=== PATIENT | female | born 1965 | race Caucasian/White ===

== ENCOUNTER 2017-07-19 07:45 | Outpatient (CLI) | payer BC | END 2017-07-19 07:46 | disposition home or self-care (01) | LOC: BICMAMMO 07:45 | PROVIDERS: ATTEND Family Medicine | DX: Z12.31 Encounter for screening mammogram for malignant neoplasm of breast (principal) | CPT/HCPCS: 77063; 77067 ==

== ENCOUNTER 2018-01-09 06:50 | Day surgery (SDC) | payer BC ==
[2018-01-08 09:19] VITALS: BMI 24.5
[2018-01-09] MEDS ORDERED: Ketorolac Tromethamine 30 MG/ML VIAL ONE (07:39)
[2018-01-09 07:52] LABS: #Basophils 0.1 thou/uL (0.0-0.2); #Eosinphils 0.2 thou/uL (0.0-0.7); #Lymphocytes 1.7 thou/uL (1.20-3.40); #Monocytes 0.5 thou/uL (0.11-0.59); #Neutrophils 3.8 thou/uL (1.40-6.50); %Basophils 0.8 % (0.0-1.0); %Lymphocytes 27.7 % (21.0-51.0); %Neutrophils 60.4 % (42.0-75.0); Hemoglobin 12.5 g/dL (12.0-16.0); Mean Corpuscular HGB CONC 33.4 g/dL (32.0-36.0); Mean Corpuscular Hemoglobin 32.7 pg (27.0-31.0); Mean Corpuscular Volume 98.1 fL (78.0-98.0); Mean Platelet Volume 6.7 fL (7.4-10.4); Platelet Count 314 thou/uL (130-400); RBC Distribution Width 11.2 % (11.5-14.5); Red Blood Cell (RBC) Count 3.81 mill/uL (4.20-5.40); White Blood Cell (WBC) Count 6.2 thou/uL (4.8-10.8)
[2018-01-09 08:13] LABS: ALT (SGPT) 8 U/L (8-55); AST (SGOT) 13 U/L (5-34); Albumin 3.9 g/dL (3.5-5.0); Alkaline Phosphatase 67 U/L (40-150); Anion Gap 13 mmol/L (10-20); BUN (Urea Nitrogen) 11 mg/dL (9.8-20.1); Bilirubin, Total 0.4 mg/dL (0.2-1.2); Calc. Creatinine Clearance 71 mL/min (70-130); Calcium 9.2 mg/dL (7.8-10.44); Carbon Dioxide 26 mmol/L (22-29); Chloride 105 mmol/L (98-107); Estimated GFR-MDRD 70; Globulin 2.9 g/dL (2.4-3.5); Glucose 100 mg/dL (70-105); Potassium 3.7 mmol/L (3.5-5.1); Protein, Total 6.8 g/dL (6.0-8.3); Sodium 140 mmol/L (136-145)
[2018-01-09] MEDS ORDERED: Bupivacaine/Epinephrine 0.25% 30 ML VIAL ONE (08:50)
[2018-01-09] MEDS ORDERED: CEFAZOLIN/Water 2 GM/20 ML SYRINGE ONE (09:05)
[2018-01-09] MEDS ORDERED: Fentanyl 100 MCG/2 ML VIAL ONE ×2 (09:10→10:42)
[2018-01-09] MEDS ORDERED: Midazolam HCl 2 mg/2 ml Vial ONE (09:10)
[2018-01-09] MEDS ORDERED: Ondansetron HCl/PF 4 MG/2 ML Vial ONE (11:45)
[2018-01-09] MEDS ORDERED: Glycopyrrolate 0.2 MG/ML 5 ML SYRINGE ONE (11:45)
[2018-01-09] MEDS ORDERED: ePHEDrine/0.9% NaCl/PF SYRINGE 50 mg/10 ml ONE (11:45)
--- NOTE | 2018-01-10 15:13 | EKG ---
Test Reason : PREOP Blood Pressure : / mmHG Vent. Rate : 054 BPM Atrial Rate : 054 BPM P-R Int : 134 ms QRS Dur : 096 ms QT Int : 412 ms P-R-T Axes : 074 045 056 degrees QTc Int : 390 ms Sinus bradycardia Otherwise normal ECG No previous ECGs available Confirmed by NUBIA ARMENTA, JEFERSON ([id number]) on 01/10/2018 3:13:24 PM Referred By: YANIRA Confirmed By:JEFERSON DELACRUZ MD
--- NOTE | 2018-01-15 11:02 | PDOC.OP ---
Operative Note - Operative Note Operative Note: PROCEDURE: Laparoscopic cholecystectomy SURGEON: Guilherme Sosa M.D. DATE OF PROCEDURE: PREOPERATIVE DIAGNOSIS: Cholelithiasis and cholecystitis POSTOPERATIVE DIAGNOSIS: Cholelithiasis and cholecystitis HISTORY: Patient with signs and symptoms of biliary colic. Laparoscopic cholecystectomy was recommended for symptomatic relief. Preoperative LFTs and bile duct caliber were normal. The patient had a preoperative CT which mentions a retroverted uterus but she has undergone total abdominal hysterectomy. Pelvic ultrasound did not show any pelvic mass, uterus or ovary. Recommendation was made to laparoscopically examine the pelvis as well to make sure that there is no solid tissue mass. FINDINGS: Distended gallbladder with omental adhesions. No pelvic mass. Uterus and ovaries surgically absent. PROCEDURE IN DETAIL: After informed consent was obtained and appropriate preoperative antibiotics were administered, the patient was taken to the operating room and placed in the supine position and general endotracheal anesthesia was administered. The stomach was decompressed with an OG tube and the abdomen was prepped and draped in standard sterile fashion. Local anesthesia was infused to the skin and subcutaneous tissues at the umbilical level. A transverse skin incision was made. The fascia was elevated and a Veress needle was placed into the abdominal cavity without difficulty. Opening pressure was less than 5 and carbon dioxide gas easily insufflated to an intra- abdominal pressure of 15, which the patient tolerated well. The Veress needle was withdrawn and a [place] port advanced under direct vision. The abdominal cavity was carefully examined. There was no evidence of Veress needle or of trocar injury. Local anesthesia was infused to the skin and subcutaneous tissues at the epigastric, right upper quadrant, and right lateral abdominal sites and trocars were placed under direct vision of the laparoscope. The fundus of the gallbladder was grasped and retracted superiorly. Omental adhesions were stripped inferiorly exposing the infundibulum. The infundibulum was grasped and retracted laterally. The serosa was stripped inferiorly at the level of the neck of the gallbladder exposing the cystic duct and artery which were traced clearly to their insertion in the gallbladder. Critical view of safety was obtained and the cystic duct and artery were clipped and divided between clips. The gallbladder was then dissected free of the gallbladder bed using hook electrocautery. Prior to complete removal of the gallbladder from the gallbladder bed, the area of the cystic duct and artery stumps was examined. The clips were in good position completely across these structures and there was no bleeding and no leakage of bile. The gallbladder was then placed into an EndoCatch bag and drawn out through the epigastric incision after removing numerous stones. The epigastric trocar was replaced and the operative site easily irrigated to clear. There was no significant bleeding or spillage of bile. The patient was then placed in Trendelenburg and the pelvis was examined. Uterus and ovaries were surgically absent and there were loops of normal appearing small bowel loops in the pelvis which were easily able to be retracted out of the pelvis and grossly normal appearing sigmoid colon. No significant adhesions or findings. The epigastric trocar was removed and the fascia closed under direct laparoscopic vision with a 0 Vicryl suture on a GraNee needle in a [id number] manner with excellent technical result. The right upper quadrant and right lateral abdominal trocars were removed and hemostasis verified. Carbon dioxide gas was allowed to desufflate through the umbilical trocar which was then removed. The skin incisions were closed with 4- 0 subcuticular Monocryl sutures and Dermabond dressings were placed. The patient was extubated and taken to the recovery room in good condition. There were no complications. ESTIMATED BLOOD LOSS: Minimal. SPECIMEN : Gallbladder and contents.
== END 2018-01-09 11:45 | disposition home or self-care (01) ==
LOC: SDC 06:50
PROVIDERS: ATTEND Surgery
PROC: 0FT44ZZ Resection of Gallbladder, Percutaneous Endoscopic Approach (ICD-10-PCS; principal; 2018-01-09)
DX: K80.10 Calculus of gallbladder with chronic cholecystitis without obstruction (principal); K82.8 Other specified diseases of gallbladder; F41.9 Anxiety disorder, unspecified; G43.909 Migraine, unspecified, not intractable, without status migrainosus; M19.90 Unspecified osteoarthritis, unspecified site; G89.29 Other chronic pain; M54.9 Dorsalgia, unspecified; Z79.899 Other long term (current) drug therapy; Z88.2 Allergy status to sulfonamides; Z98.1 Arthrodesis status
CPT/HCPCS: 36415; 80053; 85025; 88304; 93005; 93010; 96374; J0131; J1885; J2250; J2405; J3010

== ENCOUNTER 2018-01-15 08:38 | Outpatient (CLI) | payer BC ==
--- NOTE | 2018-01-15 11:55 | MRI ---
MRI LUMBAR SPINE WITH AND WITHOUT CONTRAST: HISTORY: Low back pain, M54.9. Right leg and back pain. COMPARISON: MRI from 12/30/2015. FINDINGS: The aortic contour is nonaneurysmal. No hydronephrosis. No retroperitoneal adenopathy. There are laminectomy changes at L3, L4, and L5, with posterior spinal fusion hardware. The levels are as follows: T12-L1: Circumferential disk bulge, as well as a right paracentral component. There is minimal effa cement of the ventral CSF space. No neural foraminal narrowing. L1-L2: Severe degenerative disk space height loss. There are also moderate to severe facet changes. There is a circumferential disk osteophyte complex. There is some mild effacement of the ventral C SF space, with the canal measuring approximately a centimeter. There is 1 mm of anterolisthesis. Th ere is no significant neural foraminal narrowing. L2-L3: There is a circumferential disk bulge with a right paracentral, subforaminal posterior disk p rotrusion. This causes moderate right-sided neural foraminal narrowing. The spinal canal at this le livan is narrowed to approximately 7 mm. Mild left-sided neural foraminal narrowing. Moderate facet a rthropathy. There appears to be abutment of the exiting right-sided nerve root. L3-L4: Diskectomy changes. No significant neural foraminal or spinal canal narrowing. There is a l eft facet osteophyte causing moderate neural foraminal narrowing. L4-L5: Diskectomy changes. Hypertrophic facet osteophyte on the left causes moderate left-sided carmelo ral foraminal narrowing with abutment of the exiting and traversing nerve roots. L5-S1: Severe degenerative disk space height loss. Moderate facet arthropathy. There is a left sub foraminal posterior disk osteophyte complex and a right subforaminal posterior disk osteophyte comple x. Moderate bilateral neural foraminal narrowing with abutment of the left exiting and traversing ne rve root. IMPRESSION: Degenerative changes as described above with multilevel nerve root abutment. POS: [facility]
== END 2018-01-15 08:39 | disposition home or self-care (01) ==
LOC: MRI 08:38
PROVIDERS: ATTEND Family Medicine
DX: M54.5 Low back pain (principal); M47.896 Other spondylosis, lumbar region; M47.897 Other spondylosis, lumbosacral region
CPT/HCPCS: 72158

== ENCOUNTER 2018-01-20 12:45 | Observation (INO) | payer BC ==
[2018-01-20] MEDS ORDERED: Morphine 4 MG/ML VIAL ONE (13:09)
[2018-01-20] MEDS ORDERED: Ondansetron HCl/PF 4 MG/2 ML Vial ONE (13:09)
[2018-01-20 13:15] LABS: #Basophils 0.1 thou/uL (0.0-0.2); #Eosinphils 0.4 thou/uL (0.0-0.7); #Lymphocytes 2.5 thou/uL (1.20-3.40); #Monocytes 0.5 thou/uL (0.11-0.59); %Basophils 0.9 % (0.0-1.0); %Lymphocytes 26.3 % (21.0-51.0); %Monocytes 5.3 % (0.0-10.0); %Neutrophils 63.5 % (42.0-75.0); Hemoglobin 12.9 g/dL (12.0-16.0); Mean Corpuscular HGB CONC 35.5 g/dL (32.0-36.0); Mean Corpuscular Volume 95.7 fL (78.0-98.0); Mean Platelet Volume 6.8 fL (7.4-10.4); Platelet Count 331 thou/uL (130-400); Red Blood Cell (RBC) Count 3.78 mill/uL (4.20-5.40); White Blood Cell (WBC) Count 9.5 thou/uL (4.8-10.8)
[2018-01-20 13:28] LABS: Bilirubin Negative (Negative); Blood, Urine Negative (Negative); Clarity CLEAR (Clear); Glucose, Urine (Dipstick) Negative (Negative); Leukocyte Negative (Negative); Nitrite Negative (Negative); Protein, Urine (Dipstick) Negative (Neg-Trace); Urobilinogen 0.2 mg/dL (0.2-1.0)
[2018-01-20 13:37] LABS: ALT (SGPT) 7 U/L (8-55); AST (SGOT) 13 U/L (5-34); Albumin 4.4 g/dL (3.5-5.0); Alkaline Phosphatase 77 U/L (40-150); Anion Gap 13 mmol/L (10-20); BUN (Urea Nitrogen) 11 mg/dL (9.8-20.1); Bilirubin, Total 0.4 mg/dL (0.2-1.2); Calc. Creatinine Clearance 0 mL/min (70-130); Calcium 9.6 mg/dL (7.8-10.44); Carbon Dioxide 24 mmol/L (22-29); Chloride 104 mmol/L (98-107); Estimated GFR-MDRD 72; Globulin 3.2 g/dL (2.4-3.5); Glucose 110 mg/dL (70-105); Lipase 33 U/L (8-78); Potassium 3.4 mmol/L (3.5-5.1); Protein, Total 7.6 g/dL (6.0-8.3); Sodium 138 mmol/L (136-145)
--- NOTE | 2018-01-20 13:49 | ULT ---
GALLBLADDER ULTRASOUND: HISTORY: Right upper quadrant pain. FINDINGS: Real-time imaging of the right upper quadrant was performed. This shows the gallbladder to have been removed. The common duct is 5 mm. The technologist reports a negative ultrasound Orosco's sign. Visualized liver parenchyma is normal in appearance. The liver does not appear enlarged. The right kidney is normal in size and not obstructed. IMPRESSION: Postop cholecystectomy change. POS: [facility]
[2018-01-20] MEDS ORDERED: Ondansetron HCl/PF 4 MG/2 ML Vial IVP PRN (15:32)
[2018-01-20 16:51] LABS: Troponin I Less than 0.010 ng/mL (< 0.028)
[2018-01-20] MEDS ORDERED: Morphine 4 MG/ML VIAL SLOW IVP PRN (16:52)
[2018-01-20] MEDS: Sodium Chloride 0.9% 1,000 ML IV SCH ×2 (17:50→17:51)
[2018-01-20] MEDS: Acetaminophen 1,000 MG in Premix Bag 1 BAG IVPB PRN (18:29)
[2018-01-20] MEDS: Gabapentin 300 MG CAP PO SCH (21:29)
[2018-01-20] MEDS: Famotidine/PF 20 mg/2ml Vial SLOW IVP SCH (21:30)
[2018-01-21] MEDS: Sodium Chloride 0.9% 1,000 ML IV SCH ×4 (01:35→18:44)
[2018-01-21 05:03] LABS: #Basophils 0.1 thou/uL (0.0-0.2); #Eosinphils 0.4 thou/uL (0.0-0.7); #Lymphocytes 2.7 thou/uL (1.20-3.40); #Monocytes 0.5 thou/uL (0.11-0.59); #Neutrophils 3.1 thou/uL (1.40-6.50); %Basophils 1.1 % (0.0-1.0); %Eosinophils 6.6 % (0.0-10.0); %Monocytes 7.3 % (0.0-10.0); %Neutrophils 46.1 % (42.0-75.0); Hemoglobin 10.9 g/dL (12.0-16.0); Mean Corpuscular HGB CONC 34.9 g/dL (32.0-36.0); Mean Corpuscular Volume 97.5 fL (78.0-98.0); Mean Platelet Volume 6.8 fL (7.4-10.4); Platelet Count 232 thou/uL (130-400); RBC Distribution Width 10.9 % (11.5-14.5); White Blood Cell (WBC) Count 6.8 thou/uL (4.8-10.8)
[2018-01-21 05:58] LABS: ALT (SGPT) Less than 7 U/L (8-55); AST (SGOT) 10 U/L (5-34); Albumin 3.2 g/dL (3.5-5.0); Alkaline Phosphatase 59 U/L (40-150); Anion Gap 5 mmol/L (10-20); BUN (Urea Nitrogen) 6 mg/dL (9.8-20.1); Bilirubin, Total 0.3 mg/dL (0.2-1.2); Calc. Creatinine Clearance 75 mL/min (70-130); Calcium 8.4 mg/dL (7.8-10.44); Carbon Dioxide 29 mmol/L (22-29); Chloride 110 mmol/L (98-107); Estimated GFR-MDRD 76; Globulin 2.3 g/dL (2.4-3.5); Glucose 93 mg/dL (70-105); Lipase 9 U/L (8-78); Potassium 3.7 mmol/L (3.5-5.1); Protein, Total 5.5 g/dL (6.0-8.3); Sodium 140 mmol/L (136-145)
[2018-01-21] MEDS: Famotidine/PF 20 mg/2ml Vial SLOW IVP SCH ×2 (09:03→20:39)
[2018-01-21] MEDS: Acetaminophen 1,000 MG in Premix Bag 1 BAG IVPB PRN (09:54)
--- NOTE | 2018-01-21 11:04 | MRI ---
MRI OF THE ABDOMEN WITHOUT CONTRAST: COMPARISON: Gallbladder ultrasound 01/20/18. HISTORY: Right upper quadrant pain status post cholecystectomy. TECHNIQUE: Multiplanar, multisequence MR images were obtained of the abdomen without contrast. MRCP images were performed. Three-D rotation reformats were performed. FINDINGS: The gallbladder has been removed. The common bile duct is normal in caliber without filling defect. No intrahepatic biliary dilatation is seen. The liver, kidneys, adrenal glands, spleen, and pancreas are unremarkable. No abdominal adenopathy i s seen. No marrow signal abnormality is present. IMPRESSION: Status post cholecystectomy without acute intraabdominal abnormality. POS: [facility]
--- NOTE | 2018-01-21 13:40 | PDOC.GSPN ---
Surgery Progress Note: Subj - Subjective Narrative: Feels better. Still hurting RUQ but not as bad. No N/V. MRCP normal. Abd still TTP RUQ but better. Also focally TTP right lateral ribs, not overlying abd tenderness. AF VS normal. Troponin normal yesterday. A/P) RUQ pain of unclear etiology, persistent after lap gustavo. Labs, US and MRCP negative. Will ask GI to see. Surgery Progress Note: Obj - Vital signs Vital signs: Vital Signs - Most Recent Temp Pulse Resp BP Pulse Ox 98.4 F 63 14 116/76 97 01/21/18 12:11 01/21/18 12:11 01/21/18 12:11 01/21/18 12:11 01/21/18 12:11 Surgery Progress Note: Results - Labs Result Diagrams: 01/21/18 04:53 01/21/18 04:53 Lab results: Laboratory Results - last 24 hr 01/21/18 01/21/18 04:53 04:53 WBC 6.8 RBC 3.20 L Hgb 10.9 L Hct 31.2 L MCV 97.5 MCH 34.0 H MCHC 34.9 RDW 10.9 L Plt Count 232 MPV 6.8 L Neutrophils % 46.1 Lymphocytes % 39.0 Monocytes % 7.3 Eosinophils % 6.6 Basophils % 1.1 H Neutrophils # 3.1 Lymphocytes # 2.7 Monocytes # 0.5 Eosinophils # 0.4 Basophils # 0.1 Sodium 140 Potassium 3.7 Chloride 110 H Carbon Dioxide 29 Anion Gap 5 L BUN 6 L Creatinine 0.79 Estimated GFR (MDRD) 76 Glucose 93 Calcium 8.4 Total Bilirubin 0.3 AST 10 ALT Less than 7 L Alkaline Phosphatase 59 Serum Total Protein 5.5 L Albumin 3.2 L Globulin 2.3 L Albumin/Globulin Ratio 1.4 Lipase 9
--- NOTE | 2018-01-21 15:39 | HP ---
DATE OF ADMISSION: 01/20/2018 HISTORY OF PRESENT ILLNESS: The patient is a 52-year-old woman who underwent laparoscopic cholecyste ctomy on 01/09/2018 for right upper quadrant pain attributed to gallstones. Her preoperative LFTs we re normal and her bile duct was not enlarged. Postoperatively, she initially did well; however, on , she had an episode of right upper quadrant pain identical to her preoperative pain. This last ed a couple of hours and then went away. On Saturday, she woke up around 6:00 with the right u pper quadrant pain and it was not going away, so she came into the emergency room. She was not havin g nausea, vomiting, fevers or chills and could not identify any exacerbating or alleviating factors. The episode on Saturday night did happen after eating, but the episode on Saturday did not. She was evaluated in the emergency room with labs which were unremarkable. An abdominal ultrasound whic h did not show any biloma or bile duct dilation. She was admitted for pain control and an MRCP. PAST MEDICAL HISTORY: Anxiety, anemia, migraines, chronic back pain, arthritis and elevated TSH. PAST SURGICAL HISTORY: Right parathyroidectomy, knee surgery, hysterectomy, lumbar fusion surgery fo r endometriosis and laparoscopic cholecystectomy. FAMILY HISTORY: Heart disease, diabetes lymphosarcoma. SOCIAL HISTORY: Negative for tobacco and drugs. She drinks alcohol sparingly. ALLERGIES: She reports intolerance to SULFA DRUGS, which cause an upset stomach, but does not have a ny true allergies to medications. REVIEW OF SYSTEMS: Ten-system review of systems is negative except per HPI. OUTPATIENT MEDICATIONS: Include estradiol 2 mg p.o. daily and gabapentin daily, both at bedtime. PHYSICAL EXAMINATION: VITAL SIGNS: The patient is afebrile with normal vital signs. HEENT: Unremarkable. NECK: Supple, without lymphadenopathy or thyroid nodules. HEENT: She is not jaundiced or icteric. She is not flushed or toxic in appearance. HEART: Regular in its rate and rhythm without murmurs, rubs or gallops. LUNGS: Clear to auscultation bilaterally. She does not have increased pain with deep inspiration. ABDOMEN: Soft and nondistended. She is tender to palpation in the right upper quadrant between the epigastric and right upper quadrant trocar site. No palpable hematoma or hernia at any of the trocar sites, which are healing well. No other tenderness to palpation and no rigidity, rebound or guardin g. EXTREMITIES: Warm and well perfused without edema. NEUROLOGIC: No focal deficits. PSYCHIATRIC: Alert, oriented, and appropriate. LABORATORY DATA: Reveal a normal white count of 6.8 with no left shift. Hematocrit is 31. Electrol ytes are unremarkable and LFTs and lipase are normal. UA is clear and ultrasound shows only expected postoperative changes. ASSESSMENT: Persistent right upper quadrant pain. The patient reports that this is identical to her preoperative pain, so an MRCP has been ordered for the morning. Other etiologies include musculoske letal, or gastrointestinal such as peptic ulcer disease. I will wait on the MRCP results, but will l ikely get GI involved since her pain has been persistent and fairly severe.
[2018-01-21] MEDS: Gabapentin 300 MG CAP PO SCH (20:39)
--- NOTE | 2018-01-22 00:56 | CON ---
DATE OF CONSULTATION: 01/21/2018 GASTROENTEROLOGY CONSULTATION NOTE CHIEF COMPLAINT: Abdominal pain. HISTORY OF PRESENT ILLNESS: Ms. Barr is a 52-year-old woman who for the last 4 months or so has had intermittent right upper quadrant stabbing to cramping to pressure-type pain. The pain typically la sts for 20 or 30 minutes at a time and worsens after eating. She went to the emergency room and was diagnosed with goals symptomatic gallstones. She was discharged home and follow up with General Surg bruno as an outpatient. She underwent cholecystectomy by Dr. Sosa on 01/09/2018. Following the jluis jeana, she states that the pain has been the same with right upper quadrant, sharp to cramping to pres sure-type pain after any foods. She has actually lost 8 pounds. She has been avoiding eating to barrett id the pain. She has also had diarrhea over the last several months. She has 1 or 2 loose to liquid stools per day. She has had no blood in the stool. The diarrhea is triggered by eating, but no par ticular foods seem to make such a difference. She had been drinking more milk and eating ice cream p reviously, but more recently, she does have a couple of glasses of milk last week. No other obvious food triggers, but for the last 2 weeks bland, non-spicy foods seem to cause less pain, but still cau se diarrhea. She has had no fever. She had MRCP today after coming back to the emergency room with recurrent right upper quadrant pain last night. The MRCP was negative for gallstones. Her liver jose ts have been normal. GI was consulted to evaluate the abdominal pain further. PAST MEDICAL HISTORY: Chronic back pain. She had been on tramadol and hydrocodone for years but wea perry off these a couple of years ago. More recently, she has just been on gabapentin. She did take n aproxen and esomeprazole combination intermittently but has been off this for the last couple of manohar hs. She takes ibuprofen once per week at most for headaches. She does have a history of migraine he adaches and recalls having a severe migraine headache after her last colonoscopy. She has concerned about having future endoscopic procedures due to the migraine. She tolerated the bowel prep without much trouble. PAST SURGICAL HISTORY: Three vertebral fusion in her neck and three vertebral fusion in her lower sp ine. She has had the recent cholecystectomy, has had , hysterectomy, and oophorectomy. She has had hand surgery and knee surgery. She has had her right parathyroidectomy. FAMILY HISTORY: Her mother had lymphosarcoma. She had a brother with alcoholic cirrhosis. SOCIAL HISTORY: Occasional social alcohol, maybe once every 6 weeks. No tobacco use. No drugs. ALLERGIES: SULFA caused stomach upset. MEDICATIONS: Prior to admission, estradiol 2 mg once daily, gabapentin 1 tablet daily. She has used Motrin around once per week. She used Vimovo couple of months ago, which is naproxen and esomeprazo le combination but has not been taking it lately. She has taken famotidine around once per week for indigestion. REVIEW OF SYSTEMS: Negative x10 systems reviewed except as stated in the history of present illness. PHYSICAL EXAMINATION: VITAL SIGNS: Temperature 99.2, pulse 56, blood pressure 138/84. GENERAL: She is in no acute distress, alert and oriented x3. Her eyes have no scleral icterus. OROPHARYNX: Clear without lesions. NECK: No cervical or supraclavicular lymphadenopathy. LUNGS: Clear to auscultation bilaterally. HEART: Regular rate and rhythm without murmur. ABDOMEN: Soft, no tenderness now in the abdomen including the right upper quadrant. Her bowel sound s are active. EXTREMITIES: No lower extremity edema. LABORATORY DATA: White blood cell count 6.8, hemoglobin 10.9, MCV 97.5, platelets 232. Eosinophil p ercent 6.6. Creatinine 0.79, bilirubin 0.3, AST 10, ALT 7, alkaline phosphatase 59, albumin 3.2, lipase 9. IMPRESSION: 1. Right upper quadrant abdominal pain and diarrhea over the last 4 months or so. She did have gall stones associated with postprandial right upper quadrant pain; however, her pain has persisted despit e cholecystectomy. The diarrhea is really unchanged, since cholecystectomy. She has 1 or 2 loose to liquid stools per day after meals. She has used NSAIDs intermittently. 2. Rule out peptic ulcer disease. She certainly could have irritable bowel syndrome, given the righ t upper quadrant pain and diarrhea and her since the right upper quadrant pain feels like an air bubb le in that area. Her pain does not resolve with bowel movement making irritable bowel syndrome less likely. 3. Rule out lactose intolerance. 4. Rule out celiac disease. 5. Rule out infectious gastroenteritis. MRCP and LFTs are negative for evidence of a retained bilia ry stone. Her lipase is normal. RECOMMENDATIONS: 1. EGD tomorrow. 2. Stool studies for Clostridium difficile culture, ova and parasite and lactoferrin. 3. We will check tissue transglutaminase antibody IgG; however, biopsies can be done to rule out tommy iac disease at the time of the EGD and also if she has any gastritis, we can biopsy for H. pylori. 4. A trial of lactose free diet is recommended. 5. Trial of proton-pump inhibitor can be given if the endoscopy is negative tomorrow. She can follo w up with me in GI clinic after that has discharged home tomorrow, was anticipated after endoscopy if her pain continues to improve.
[2018-01-22] MEDS: Sodium Chloride 0.9% 1,000 ML IV SCH ×2 (01:46→16:23)
[2018-01-22] MEDS: Famotidine/PF 20 mg/2ml Vial SLOW IVP SCH (07:57)
[2018-01-22] MEDS ORDERED: Ondansetron HCl/PF 4 MG/2 ML Vial IVP PRN (11:44)
[2018-01-22] MEDS ORDERED: Promethazine HCl 25 MG/ML VIAL IM PRN (11:44)
[2018-01-22] MEDS ORDERED: Promethazine HCl 25 MG/ML VIAL SLOW IVP PRN (11:44)
--- NOTE | 2018-01-22 11:49 | OP ---
DATE OF SERVICE: 01/22/2018 PROCEDURE: Esophagogastroduodenoscopy with biopsy. SURGEON: Dilpi Hicks M.D. ANESTHESIA: Premedication given per Anesthesiology Department. PREPROCEDURE DIAGNOSES: 1. Right upper quadrant pain (status post laparoscopic cholecystectomy last month, negative MRCP for choledocholithiasis). 2. Postprandial diarrhea, negative stool studies. POSTOPERATIVE DIAGNOSES: 1. Normal duodenum/stomach/esophagus. 2. Z-line at 36 cm. PROCEDURE IN DETAIL: A written consent was obtained prior to procedure. After adequate sedation, th e forward-viewing endoscope was advanced down the pharynx under direct vision to the third portion of duodenum. The entire duodenum including the bulb appeared normal. Biopsies were obtained from the third portion and second portion to rule out celiac disease. The pylorus is patent. The gastric ant rum, body, fundus, and cardia all appeared normal. Biopsy of the stomach was obtained from the antru m and body. Retroflexion did not show any abnormality. GE junction with a well demarcated Z-line wa s noted at 36 cm from the incisors. The lower, mid, and upper esophagus appeared normal. The patien t tolerated the procedure well. ASSESSMENT: Visually normal upper endoscopy. RECOMMENDATIONS: 1. Await biopsy result. 2. Patient can be discharged to home from GI standpoint with outpatient followup in 3 weeks. 3. A trial of colestipol 1 gram p.o. b.i.d. a.c. for suspected bile acid diarrhea.
[2018-01-22 13:12] VITALS: BP 150/84; TEMP 97.5
[2018-01-22] MEDS ORDERED: Lidocaine 1% PF 5 ML VIAL ONE (13:18)
[2018-01-22] MEDS ORDERED: PROPOFOL 200 MG/20 ML VIAL ONE (13:18)
[2018-01-23 13:55] LABS: EliA Celiac New Method **** NEW METHOD ****; t-Transglutaminase (tTG) IgA 0.6 EliAU/mL (<7 Negative)
== END 2018-01-22 15:15 | disposition home or self-care (01) ==
LOC: ERS 12:45 → SURG A 15:12
PROVIDERS: ADMIT Surgery; ATTEND Surgery
PROC: 0DB98ZX Excision of Duodenum, Via Natural or Artificial Opening Endoscopic, Diagnostic (ICD-10-PCS; principal; 2018-01-22)
PROC: 0DB68ZX Excision of Stomach, Via Natural or Artificial Opening Endoscopic, Diagnostic (ICD-10-PCS; 2018-01-22)
DX: K29.50 Unspecified chronic gastritis without bleeding (principal); D64.9 Anemia, unspecified; F41.9 Anxiety disorder, unspecified; Z88.2 Allergy status to sulfonamides
CPT/HCPCS: 36415; 74181; 76705; 80053; 81003; 83516; 83605; 83630; 83690; 84484; 85025; 87045; 87046; 87086; 87324; 87328; 87329; 87449; 87493; 87899; 88305; 88312; 93005; 93010; 96361; 96366; 96374; 96375; 96376; G0378; J0131; J2001; J2270; J2405; J2704; S0028

== ENCOUNTER 2018-03-24 07:05 | Day surgery (SDC) | payer BC ==
[2018-03-24 11:09] VITALS: BP 135/80; TEMP 97.8
--- NOTE | 2018-03-24 13:25 | CT ---
LUMBAR MYELOGRAM CT LUMBAR SPINE WITH INTRATHECAL CONTRAST: HISTORY: Low back pain. Prior surgeries. FINDINGS: After explaining the procedure and answering all questions, the patient was placed on the fluoroscopy table in prone position. Sterile technique, buffered local anesthesia, fluoroscopic guidance, and a posterior approach were used to carefully advance a 22-gauge spinal needle into the thecal sac at th e L3 level. A total volume of 8 cc [id number]-200M contrast was carefully instilled into the thecal sac under fluoroscopic control. The needle was removed and spot images obtained. Fluoro time 0.3 minute s. The patient was transferred to CT in good condition and eventually to the [facility] area for further mo nitoring. T12-L1: Disk space narrowing. Mild disk bulge. Thecal sac and neural foramen are patent. L1-2: Disk space narrowing. Minimal degenerative spondylolisthesis. Mild posterior disk bulge. Ci rcumferential degenerative changes. Mild stenosis of the central canal and each neural foramen. L2-3: Disk space narrowing. Posterior disk bulge and circumferential degenerative changes. Moderat e stenosis of the central canal. Mild stenosis of each neural foramen. L3-4: Postoperative changes with disk replacement material and posterior operative fixation. Thecal sac is patent. Osteophytosis with mild to moderate stenosis of the left neural foramen. L4-5: Postoperative changes. Thecal sac and neural foramen are patent. L5-S1: Disk space narrowing. Minimal degenerative retrolisthesis. Posterior central disk herniatio n with anterior extension, small. Minimal effacement of the thecal sac and origin of the right S1 ne rve root. Degenerative changes with moderate to severe stenosis of each neural foramen, right greate r than left. IMPRESSION: Postoperative and degenerative changes lumbar spine as detailed above. Posterior disk herniation at the L5-S1 level with inferior extension. Significant bilateral foraminal stenosis at the lumbosacral junction. Clinical correlation regarding other signs and symptoms of each L5 nerve root is required . POS: [facility]
[2018-03-24] MEDS ORDERED: Iopamidol-M 200 41% 20 ML VIAL ONE (15:10)
== END 2018-03-24 10:05 | disposition home or self-care (01) ==
LOC: RAD 07:05
PROVIDERS: ATTEND Neurological Surgery
DX: M43.06 Spondylolysis, lumbar region (principal); M51.36 Other intervertebral disc degeneration, lumbar region; M51.26 Other intervertebral disc displacement, lumbar region
CPT/HCPCS: 62304; 72132

== ENCOUNTER 2018-09-30 11:44 | Day surgery (SDC) | payer BC ==
[2018-09-29 09:45] VITALS: BMI 24.5
[~2018-09-30 11:44] MED LIST: Ondansetron PF 4 MG/2 ML Vial ONE; PROPOFOL 200 MG/20 ML VIAL ONE
[2018-09-30] MEDS ORDERED: CEFAZOLIN 1 GM VIAL ONE (12:12)
[2018-09-30] MEDS ORDERED: Sodium Chloride 0.9% 100 ML ONE (12:12)
[2018-09-30] MEDS ORDERED: Bupivacaine HCl 0.5%/Epinephrine 1:200,000/PF 30 ml Vial ONE (13:03)
[2018-09-30] MEDS ORDERED: Fentanyl 100 MCG/2 ML VIAL ONE (13:08)
[2018-09-30] MEDS ORDERED: Midazolam HCl 2 mg/2 ml Vial ONE (13:08)
[2018-09-30] MEDS ORDERED: Propofol 500 MG/50 ML VIAL ONE (13:41)
--- NOTE | 2018-09-30 14:22 | RAD ---
THORACIC SPINE ONE VIEW: History: Pain pump. Dorsal column stimulator lead placement. FINDINGS: Dorsal column stimulator leads are noted ascending up to approximately the T8-9 interspace region. IMPRESSION: Dorsal column stimulator placement. POS: [facility]
--- NOTE | 2018-10-01 11:18 | OP ---
DATE OF PROCEDURE: 09/30/2018 PREOPERATIVE DIAGNOSES: 1. Chronic pain syndrome. 2. Postlaminectomy syndrome. 3. Lumbar radiculopathy. POSTOPERATIVE DIAGNOSES: 1. Chronic pain syndrome. 2. Postlaminectomy syndrome. 3. Lumbar radiculopathy. PROCEDURES PERFORMED: 1. Spinal cord stimulator generator implant x1. 2. Spinal cord stimulator lead implant x2. 3. Fluoroscopy for programing. ESTIMATED BLOOD LOSS: 5 mL. SUMMARY OF PROCEDURE: The patient was taken to the operating room and placed prone on the procedure room table. A time-out was performed. The back was prepped with ChloraPrep. Sterile drapes were applied. Using fluoroscopy, we located the interspace of T12-L1. We anesthetized the skin above this with 0.5% Marcaine with epinephrine. This fell over the previous scar. We made an incision with a 10 blade scalpel and blunt dissected this down to fascia. We then used a 14-gauge Touhy needle that was applied in the lead kit in a paramedian technique to engage in the interspinous ligament of T12-L1. We used lost resistance to air to achieve access to the epidural space. There was negative aspiration for blood or CSF. An [address] Tono lead was inserted through the needle and advanced up the midline dorsal epidural space to the bottom of T7 under continuous fluoroscopy. We performed the exact same technique on the contralateral side to the same level to place 2 parallel leads at the same level. Stimulation was performed with the patient awake and the patient noted paresthesia in all pain areas. The needles and stylets were removed taking care not to move the leads and the anchor was placed over this and brought down to the fascia. These were clicked to fixate them to the lead. A 2-0 silk suture was used to fix these to the fascia x2. We then anesthetized the battery pocket. We made an incision with a 10 blade scalpel and dissected this down to Tyson's fascia. We then made a pocket inferior and superior to this. We used a tunneling device to connect the 2 pockets. The leads were inserted through the tunneling device and advanced to the battery pocket. These were connected to the battery and we used a torque wrench to tighten them down to the battery. Impedances were checked, which were all good. The battery was placed inside the pocket. We approximated the fascial layers using 2-0 Vicryl suture in simple interrupted fashion. We then used leona for the skin layer and Dermabond as an occlusive dressing. We placed a sterile dressing on top of this with Medipore. The patient was taken to PACU under stable condition with no apparent complications noted at this time. Job ID: [id number]
== END 2018-09-30 16:15 | disposition home or self-care (01) ==
LOC: SDC 11:44
PROVIDERS: ATTEND Specialist
PROC: 0JH70BZ Insertion of Single Array Stimulator Generator into Back Subcutaneous Tissue and Fascia, Open Approach (ICD-10-PCS; principal; 2018-09-30)
PROC: 00HU3MZ Insertion of Neurostimulator Lead into Spinal Canal, Percutaneous Approach (ICD-10-PCS; principal; 2018-09-30)
DX: M96.1 Postlaminectomy syndrome, not elsewhere classified (principal); G89.4 Chronic pain syndrome; M47.26 Other spondylosis with radiculopathy, lumbar region; M47.27 Other spondylosis with radiculopathy, lumbosacral region; M51.17 Intervertebral disc disorders with radiculopathy, lumbosacral region; M19.90 Unspecified osteoarthritis, unspecified site; F41.9 Anxiety disorder, unspecified; M46.1 Sacroiliitis, not elsewhere classified; Z88.2 Allergy status to sulfonamides
CPT/HCPCS: 72020; 76000; C1767; C1778; J0670; J0690; J2250; J2405; J2704; J3010; J3490

== ENCOUNTER 2018-12-03 15:01 | Outpatient (CLI) | payer BC ==
--- NOTE | 2018-12-03 15:28 | MMO ---
Bilateral MAMMO Bilat Screen [facility]. CLINICAL HISTORY: Patient is 53 years old and is seen for screening. The patient has no family history of breast cancer. The patient has no personal history of cancer. VIEWS: The views performed were: bilateral craniocaudal with tomosynthesis and bilateral mediolateral oblique with tomosynthesis. FILMS COMPARED: The present examination has been compared to prior imaging studies performed at [facility] on 12/03/2013, 12/17/2014, 05/17/2016 and 07/19/2017. MAMMOGRAM FINDINGS: The breasts are heterogeneously dense, which could obscure a lesion on mammography. There are no suspicious masses, suspicious calcifications, or new areas of architectural distortion. IMPRESSION: THERE IS NO MAMMOGRAPHIC EVIDENCE OF MALIGNANCY. A ROUTINE FOLLOW-UP MAMMOGRAM IN 1 YEAR IS RECOMMENDED. THE RESULTS OF THIS EXAM WERE SENT TO THE PATIENT. ACR BI-RADS Category 1 - Negative MAMMOGRAPHY NOTE: 1. A negative mammogram report should not delay a biopsy if a dominant of clinically suspicious mass is present. 2. Approximately 10% to 15% of breast cancers are not detected by mammography. 3. Adenosis and dense breasts may obscure an underlying neoplasm. Reported by: MARIYA YOO MD Electonically Signed: [id number]
== END 2018-12-03 15:02 | disposition home or self-care (01) ==
LOC: BICMAMMO 15:01
PROVIDERS: ATTEND Family Medicine
DX: Z12.31 Encounter for screening mammogram for malignant neoplasm of breast (principal)
CPT/HCPCS: 77063; 77067

== ENCOUNTER 2021-05-30 13:30 | Outpatient (CLI) | payer BC | END 2021-05-30 13:31 | disposition home or self-care (01) | LOC: BICMAMMO 13:30 | PROVIDERS: ATTEND Family Medicine | DX: Z12.31 Encounter for screening mammogram for malignant neoplasm of breast (principal); Z13.820 Encounter for screening for osteoporosis | CPT/HCPCS: 77063; 77067; 77080 ==

== ENCOUNTER 2022-08-03 07:24 | Outpatient (CLI) | payer BC | END 2022-08-03 07:25 | disposition home or self-care (01) | LOC: SCSMRI 07:24 | PROVIDERS: ATTEND Specialist | DX: M96.1 Postlaminectomy syndrome, not elsewhere classified (principal); M47.816 Spondylosis without myelopathy or radiculopathy, lumbar region; M47.817 Spondylosis without myelopathy or radiculopathy, lumbosacral region; Z98.890 Other specified postprocedural states | CPT/HCPCS: 72148 ==